=== PATIENT | male | born 1990 | race Caucasian/White ===

== ENCOUNTER 2025-01-13 19:02 | Emergency (ER) | payer OTHER, MEDICAID, SELFPAY ==
[2025-01-13 19:05] VITALS: BP 118/78; PULSE 87; O2SAT 98
[2025-01-13 19:09] VITALS: BP 127/70; PULSE 67; RESP 20; TEMP 37.1; O2SAT 96; BMI 31.1
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
--- OUTSIDE RECORDS SUMMARY | 2025-01-13 19:44 | XMS_ITS | Clinical Summary ---
Author Organization [facility] Address [address] [place] [address] Care Team Providers Care Central Office Equipment Engineer Name Role Phone Eneida Nichols PA-C Primary Care Provider [phone] Source Comments PLEASE NOTE, if this patient is a minor, it may be UNLAWFUL to discuss sensitive information that is contained in these records (such as FAMILY PLANNING, MENTAL HEALTH or SUBSTANCE ABUSE) with the minor patient's parent or other person without the patient's specific authorization.[facility] Allergies No known active allergies Medications risperiDONE (RISPERDAL) 1 mg tablet Take 1 Tab by mouth once daily 30 Tab 1 05/05/2018 Active traZODone (DESYREL) 50 mg tabletIndicatio ns:Anxiety and depression Take 1 Tab by mouth nightly at bedtime 30 Tab 3 05/05/2018 Active hydrOXYzine HCl (ATARAX) 50 mg tablet Take 1 Tab by mouth 3 (three) times daily as needed for anxiety 90 Tab 2 05/05/2018 Active cloNIDine HCl (CATAPRES) 0.1 mg tablet Take 1 Tab by mouth 2 (two) times daily 60 Tab 1 05/05/2018 Active valACYclovir (VALTREX) 1 gram tabletIndicatio ns:HSV-2 infection Take 1 Tab by mouth once daily 10 Tab 1 12/11/2019 Active Active Problems Problem Noted Date Diagnosed Date Suicidal ideation 06/09/2024 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 Alcohol dependence ([facility]) 12/27/2018 Overview (12/27/2018): Per [facility] Bipolar disorder ([facility]) 12/27/2018 Opioid overdose ([facility]) 04/22/2018 Overview (11/17/2018): Seen at [facility] on 04-20-18 11/05/18 Admitted [facility] psych for suicidal ideation Anxiety and depression 10/08/2016 Overview (01/06/2019): 01/03/19 Admitted to [facility] with SI Mood swings 10/08/2016 Polysubstance abuse ([facility]) 10/08/2016 Smoking addiction 02/23/2013 Allergy 02/23/2013 Immunizations Immunization Administration Dates Next Due Hep B, Adult/Adol (HHCVCUZ-P-GIHPQ/RECOMBIVAX-AD ULT) 02/02/2019 INFLUENZA, SEASONAL, INJECTABLE 02/23/2018,02/23 PNEUMOCOCCAL CONJUGATE PCV 13 01/29/2018 PNEUMOCOCCAL POLYSACCHARIDE PPV23 (Pneumovax 23) 02/23/2018 PPD 10/08/2016 TDAP 01/29/2018 Social History Tobacco Use Types Packs/Day Years Used Date Smoking Tobacco: Every Day Cigarettes 1 11 Smokeless Tobacco: Current Tobacco Cessation:Ready to Q uit: Yes; Counseling Given: Yes Comments:5 cigarettes aday Alcohol Use Standard Drinks/Week Comments Yes 0 (1 standard drink = 0.6 oz pur e alcohol) occasional Social Connections Answer Date Recorded Connectedness 0 05/13/2024 Financial Resource Strain Answer Date R ecorded Financial Resource Strain 0 2023 Stress Answer Date Recorded Stress 0 05/13/2024 Physical Activity Answer Date Recorded Physical Activity 0 05/13/2024 Food Insecurity Answer Date Recorded Food 0 05/13/2024 Transportation Needs Answer Date Record ed Transportation 0 05/13/2024 Housing Stability Answer Date Recorded Housing 0 05/13/2024 Safety and Environment Answer Date Robbin rded Safety 0 05/13/2024 Utilities Answer Date Recorded Utilities 0 05/13/2024 Employment Answer Date Recorded Stress 0 05/13/2024 Sex and Gender Information Value Date Recorded Sex Assigned at Male 01/29/2018 9:27 AM PDT Legal Sex Male 8:20 AM PDT Gender Identity Male 01/29/2018 9:27 AM PDT Sexual Orientation Straight 01/29/2018 9: 27 AM PDT Last Filed Vital Signs Vital Sign Reading Time Taken Comments Blood Pressure 116/60 02/02/2019 2:53 PM EDT Pulse 60 02/02/2019 2:53 PM EDT Temperature 37 C (98.6 F) 02/02/2019 2:53 PM EDT Respiratory Rate 18 02/02/2019 2:53 PM EDT Oxygen Saturation 97% 04/15/2018 1:58 PM EST Inhaled Oxygen Concentration - - Weight 67.1 kg (147 lb 14.4 oz) 02/02/2019 2:53 PM EDT Height 165.1 cm (5' 5 ) 02/02/2019 2:53 PM EDT Body Mass Index 24.61 02/02/2019 2:53 PM EDT Plan of Treatment Health Maintenance Due Date Last Done Comments Anxiety Screening 1991 Medicare Annual Wellness Visit 11/08/2009 Depression Monitoring 04/30/2018 01/29/2018 Diabetes Screening 01/29/2019 01/29/2018, 10/08/2016 Lipid Screening 01/29/2019 01/29/2018 Tobacco Cessation Counseling (#1) 01/29/2019 018 Tobacco Screening 01/29/2019 01/29/2018 Imm-Hepatitis B (2 of 3 - 19 + 3-dose series) 03/02/2019 02/02/2019 Syphilis Screening 02/03/2020 02/02/2019, 1 06/15/2017, 10/08/2016 Hypertension Screening (#1) 02/01/2022 Uel-MTZWO-89 ( season) 2024 05/09/2021, 08/23/2020, 07/26/2020 Alcohol and Drug Screen 05/26/2024 02/02/2019, 01/29 Imm-Influenza (#1) 2025 02/23/2018, 02/23/2013 Imm-DTaP/Tdap/Td (2 - Td or Tdap) 01/30/2028 018 Imm-Pneumococcal (3 of 3 - P CV20 or PCV21) 11/08/2041 02/23/2018, 01/29/2018 Hepatitis C Screening Completed 01/29/2018 HIV Screening Completed 02/02/2019, 01/29/2018 Procedures Procedure Name Priority Date/Time Associated Diagnosis Comments ANTIBODY HIV-1&HIV-2 SINGLE RESULT Routine 02/02/2019 3:25 PM EDT Screen for STD (sexually transmitted disease) FTA-ABS, SERUM Routine 02/02/2019 3:25 PM EDT Screen for STD (sexually transmitted disease) HEPATITIS A,B,C PANEL Routine 01/29/2018 11:03 AM EDT Encounter for HCV screening test for low risk patient COMPREHENSIVE METABOLIC PANEL Routine 01/29/2018 11:03 AM EDT Routine general medical examination at a health care facility LIPID PANEL Routine 01/29/2018 11:03 AM EDT Routine general medical examination at a health care facility from Last 3 Months or Most Recently Relevant to Health Maintenance Results * FTA-ABS, SERUM (02/02/2019 3:25 PM EDT) TREPONEMAL AB NEGATIVE NEGATIVE [facility] 02/02/2019 3:25 PM EDT 02/02/2019 3:28 PM EDT Narrative [facility] - 02/02/2019 7:20 PM EDT [facility], [place] [address] Trigonometry Teacher - Karine Edward MD PT ID [id number] ORD# [id number] Ermias Ennis NP LAB - [place] [address], * STD--HIV1 &2 (02/02/2019 3:25 PM EDT) Pathologist [facility] HIV 1 AND 2 ANTIBODY SCREEN NEGATIVE NEGATIVE [facility] Comment: This assay is a 4th generation assay allowing for earlier detection of HIV infection by detecting the presence of the HIV-1 p24 antigen as well as the traditional antibodies to HIV type 1 (including group O) and type 2. Use of a 4th generation assay is the current CDC recommendation for HIV screening. Blood specimen (specimen) Blood / Unknown 02/02/2019 3:25 PM EDT 02/02/2019 3:28 PM EDT Narrative [facility] - 02/02/2019 7:47 PM EDT [employer], a member of [address] [address] Trigonometry Teacher - Karine Edward MD PT ID [id number] ORD# [id number] Ermias Ennis NP LAB - BLOOD DRAW Final Result Performing Organization Address City/[facility]/ZIP Co de Phone Number [address] [address], [place] [phone] * (ABNORMAL) HEPATITIS A,B,C PANEL (01/29/2018 11:03 AM EDT) HEPATITIS B SURFACE ANTIBODY NEGATIVE NEGATIVE [facility] HEPATITIS B SURFACE ANTIGEN NEGATIVE NEGATIVE [facility] Comment: Over the counter supplements containing high doses of biotin may interfere with this assay. If interference is suspected, patients shoud be retested after refraining from biotin supplements for 72 hours. HEPATITIS C VIRUS DIAGNOSTIC NEGATIVE NEGATIVE [facility] HEPATITIS B CORE ANTIBODY NEGATIVE NEGATIVE [facility] HEPATITIS A ANTIBODY TOTAL POSITIVE(A) NEGATIVE [facility] Comment: Over the counter supplements containing high doses of biotin may interfere with this assay. If interference is suspected, patients shoud be retested after refraining from biotin supplements for 72 hours. Blood specimen (specimen) Blood / Unknown 01/29/2018 11:03 AM EDT 01/29/2018 2:44 PM EDT Narrative [facility] - 01/29/2018 4:24 PM EDT [employer] [address] [place] [address] PT ID [id number] ORD# [id number] [facility] - BLOOD DRAW Edited Result - Final [address] [address], [place] [phone] * LIPID PANEL (01/29/2018 11:03 AM EDT) CHOLESTEROL 129 0 - 200 mg/dL [facility] TRIGLYCERIDES 73 0 - 150 mg/dL [facility] HDL CHOLESTEROL 41 >40 mg/dL [facility] LDL CALCULATED 74 0 - 100 mg/dL [facility] TC-HDLC RATIO 3.2 0 - 4.4 mg/dL [facility] Blood specimen (specimen) Blood / Unknown 01/29/2018 11:03 AM EDT 01/29/2018 2:44 PM EDT [facility] - 01/29/2018 4:04 PM EDT [facility] [address] [place] [address] PT ID [id number] ORD# [id number] [facility] - BLOOD DRAW Edited Result - Final [facility] [address] [place] [address], * (ABNORMAL) COMPRE METAB PANEL (CMP) (01/29/2018 11:03 AM EDT) GLUCOSE 108(H) 70 - 100 mg/dL [facility] Comment:Reference range appl icable to fasting specimens only BUN 8 5 - 25 mg/dL [facility] CREAT 1.00 0.7 - 1.3 mg/dL [facility] GLOMERULAR FILTRATION RATE > 60 [facility] Comment: If patient is -Bur[place]ian, multiply result by 1.21 Chronic Kidney Disease: < 60 ml/min/1.73 square meters Kidney Failure: < 15 ml/min/1.73 square meters SODIUM 137 133 - 145 mmol/L [facility] POTASSIUM 3.3(L) 3.5 - 5.5 mmol/L [facility] CHLORIDE 103 96 - 110 mmol/L [facility] CO2 24 21 - 32 mmol/L [facility] ANION GAP 10 3 - 11 [facility] CALCIUM 9.2 8.5 - 10.5 mg/dL [facility] TOTAL PROTEIN 7.2 6.0 - 8.0 G/dL [facility] ALBUMIN 4.3 3.2 - 5.0 G/dL [facility] BILI, TOTAL 0.4 0.0 - 1.4 mg/dL [facility] SGOT 15 10 - 42 U/L [facility] SGPT 17 10 - 60 U/L [facility] ALK PHOS 71 42 - 121 U/L [facility] Blood specimen (specimen) Blood / Unknown 01/29/2018 11:03 AM EDT 01/29/2018 2:44 PM EDT [facility] - 01/29/2018 4:04 PM EDT [facility] [address] [place] [address] PT ID [id number] ORD# [id number] [facility] - BLOOD DRAW Edited Result - Final [facility] [address] [place] [address], from Last 3 Months or Most Recently Relevant to Health Maintenance Insurance [place]ICARE - [place] [facility] [place] Care Teams Central Office Equipment Engineer Relationship Specialty Start Date End Date Eneida Nichols PA-C [address] [place] [id number] PCP - General Primary Care 10/23/23
--- OUTSIDE RECORDS SUMMARY | 2025-01-13 19:44 | XMS_ITS | Clinical Summary ---
Author Organization [facility] Address [address] [place] [address] Phone Care Team Providers Care Gaming Pit Boss Name Role Phone Physician, No Pcp Primary Care Provider Unavaila ble Allergies No known active allergies Encounters Date Type Department Care Team Description 12/21/2024 5:42 PM EDT - 12/22/2024 11:32 AM EDT Emergency [facility] Emergency [address] [place] [address] Nathaly Basurto MD Mersier, Jasmine, DO Suicidal ideation (Primary Dx); Polysubstance abuse (CMS/HCC V24, CMS/[facility] V28); Medical clearance for psychiatric admission Discharge Disposition: Another Health Care Institution Not Defined from Last 3 Months Medical History Medical History Date Comments Adhd per [facility] Schizoaffective disorder (CMS/HCC V24, CMS/[facility] V 28) per [facility] Anxiety per [facility] Depression per [facility] History of bipolar disorder per [facility] Asthma Hyperthyroidism Social History Tobacco Use Types Packs/Day Years Used Date Smoking Tobacco: Every Day Cigarettes Smokeless Tobacco: Current Tobacco Cessation:Ready to Q uit: Not Asked; Counseling Given: Not Answered Alcohol Use Standard Drinks/Week Comments Not Currently 0 (1 standard drink = 0.6 oz pur e alcohol) Sex and Gender Information Value Date Recorded Sex Assigned at Not on file Legal Sex Male 5:08 AM EST Gender Identity Not on file Sexual Orientation Not on file Obstetrics History Last Filed Vital Signs Vital Sign Reading Time Taken Comments Blood Pressure 132/70 12/22/2024 6:23 AM EDT Pulse 68 12/22/2024 6:23 AM EDT Temperature 37.1 C (98.8 F) 12/22/2024 6:23 AM EDT Respiratory Rate 18 12/22/2024 6:23 AM EDT Oxygen Saturation 97% 12/22/2024 6:23 AM EDT Inhaled Oxygen Concentration - - Weight 74.8 kg (165 lb) 12/21/2024 5:49 PM EDT Height 165.1 cm (5' 5 ) 12/21/2024 5:49 PM EDT Body Mass Index 27.46 12/21/2024 5:49 PM EDT Plan of Treatment Health Maintenance Due Date Last Done Comments Hepatitis A Vaccines (1 of 2 - Risk 2-dose series) 11/08/2010 Hepatitis B Vaccines (2 of 3 - 19+ 3-dose series) 03/02/2019 02/02/2019 COVID-19 Vaccine (4 - 2023-2 5 season) 2024 05/09/2021, 08/23/2020, 07/26/2020 Depression Screening 05/26/2024 Cholesterol Screening (Lipid Panel) 12/22/2024 01/29/2018, 01/29/2018 Hepatitis C Screening 12/22/2024 Medicare Annual Wellness Visit 12/22/2024 Social Influencers of Health Screening 12/22/2024 Influenza Vaccine (#1) 2025 8, 02/23/2013 DTaP,Tdap,and Td Vaccines (2 - Td or Tdap) 01/30/2028 01/29/2018 Pneumococcal Vaccine: Pediatrics (0 to 5 Years) and At-Risk Patients (6 to 49 Years) (3 of 3 - PCV20 or PCV21) 11/08/2041 02/23/2018, 01/29/2018 HIV Screening Completed 02/02/2019 HIB Vaccines Aged Out No longer eligi ble based on patient's age to complete this topic HPV Vaccines Aged Out No longer eligi ble based on patient's age to complete this topic IPV Vaccines Aged Out No longer eligi ble based on patient's age to complete this topic MMR Vaccines Aged Out No longer eligi ble based on patient's age to complete this topic Meningococcal ACWY Vaccine Aged Out N o longer eligible based on patient's age to complete this topic Meningococcal B Vaccine Aged Out No l onger eligible based on patient's age to complete this topic RSV Immunization Patients Under 20 months Aged Out No longer eligible b ased on patient's age to complete this topic Varicella Vaccines Aged Out No longer eligible based on patient's age to complete this topic Procedures Procedure Name Priority Date/Time Associated Diagnosis Comments CBC WITH AUTO DIFFERENTIAL STAT 12/21/2024 6:03 PM EDT METHADONE SCREEN, URINE STAT 12/21/2024 6:03 PM EDT PHENCYCLIDINE, URINE STAT 12/21/2024 6:03 PM EDT BUPRENORPHINE SCREEN, URINE STAT 12/21/2024 6:03 PM EDT DRUG ABUSE SCREEN 8A PANEL, URINE STAT 12/21/2024 6:03 PM EDT SALICYLATE LEVEL STAT 12/21/2024 6:03 PM EDT ACETAMINOPHEN LEVEL STAT 12/21/2024 6 :03 PM EDT ETHANOL STAT 12/21/2024 6:03 PM EDT COMPREHENSIVE METABOLIC PANEL STAT 12/21/2024 6:03 PM EDT CBC AND DIFFERENTIAL STAT 12/21/2024 6:03 PM EDT from Last 3 Months Results * (ABNORMAL) Drug abuse screen 8a panel, urine (12/21/2024 6:03 PM EDT) Amphetamine Screen, Ur Negative Negative LAB CHEMISTRY METHOD 5 7:14 PM EDT [facility] Comment:Certain OTC medicati ons containing ephedrine, phenylephrine, pseudoephedrine and phenylpropanolamine can cause false positive results. Barbiturate Screen, Ur Negative Negative LAB CHEMISTRY METHOD 5 7:14 PM EDT [facility] Benzodiazepine Screen, Ur Negative Negative LAB CHEMISTRY METHOD 5 7:14 PM EDT [facility] Cocaine Screen, Ur Positive(A ) Negative LAB CHEMISTRY METHOD 5 7:14 PM EDT [facility] Opiate Screen, Ur Negative Negative LAB CHEMISTRY METHOD 5 7:14 PM EDT [facility] Cannabinoid (THC) Screen, Ur Positive(A ) Negative LAB CHEMISTRY METHOD 5 7:14 PM EDT [facility] Comment:Specimens from patie nts taking pantoprazole sodium (Protonix) have been shown to produce false positive results. Oxycodone Screen, Ur Negative Negative LAB CHEMISTRY METHOD 5 7:14 PM EDT [facility] Fentanyl, Ur Positive(A ) Negative LAB CHEMISTRY METHOD 5 7:14 PM EDT [facility] Urine Urine specimen obtained by clean catch procedure / Unknown Non-blood Collection / Unknown 12/21/2024 6:03 PM EDT 12/21/2024 6:30 PM EDT Narrative [facility] - 12/21/2024 7:14 PM EDT Assay cutoffs: Amphetamines 1000 ng/mL Barbiturates 200 ng/mL Benzodiazepines 200 ng/mL Cocaine 300 ng/mL Fentanyl 1 ng/mL Opiates 300 ng/mL Oxycodone 100 ng/mL THC 50 ng/mL Semi-quantitative assay for screening purposes only. Unconfirmed screening result should not be used for non-medical purposes. *ALTERNATE METHOD CONFIRMATION DONE UPON REQUEST ONLY* Eric Conklin MD LAB URINE ORDERABLES Final Result [facility] [address] [place] [address], * (ABNORMAL) Buprenorphine screen, urine (12/21/2024 6:03 PM EDT) Buprenorphine Screen Urine Positive (A) Negative LAB CHEMISTRY METHOD 12/21/2024 6:54 PM EDT [facility] Urine Urine specimen obtained by clean catch procedure / Unknown Non-blood Collection / Unknown 12/21/2024 6:03 PM EDT 12/21/2024 6:30 PM EDT Narrative [facility] - 12/21/2024 6:54 PM EDT Assay cutoff 5 ng/mL Semi-quantitative assay for screening purposes only. Unconfirmed screening result should not be used for non-medical purposes. *ALTERNATE METHOD CONFIRMATION DONE UPON REQUEST ONLY* Eric Conklin MD LAB URINE ORDERABLES Final Result Performing Organization Address [facility] [[email or web address]] de Phone Number [facility] [address] [place] [address], [place] [phone] * Methadone, urine (12/21/2024 6:03 PM EDT) Methadone Screen, Urine Negative Negative LAB CHEMISTRY METHOD 12/21/2024 6:54 PM EDT [facility] Comment: Assay cutoff 300 ng/mL Semi-quantitative assay for screening purposes only. Unconfirmed screening result should not be used for non-medical purposes. *ALTERNATE METHOD CONFIRMATION DONE UPON REQUEST ONLY* Urine Urine specimen obtained by clean catch procedure / Unknown Non-blood Collection / Unknown 12/21/2024 6:03 PM EDT 12/21/2024 6:30 PM EDT Eric Conklin MD LAB URINE ORDERABLES Final Result Performing Organization Address [facility] [[email or web address]] de Phone Number [facility] [address] [place] [address], [place] [phone] * (ABNORMAL) CBC auto differential (12/21/2024 6:03 PM EDT) WBC 12.9(H) 4.8 - 10.8 K/[facility] LAB HEMETOLOGY METHOD 12/21/2024 6:42 PM EDT [facility] RBC 4.80 4.50 - 5.50 M/[facility] LAB HEMETOLOGY METHOD 12/21/2024 6:42 PM EDT [facility] Hemoglobin 13.3(L) 13.5 - 17.5 g/dL LAB HEMETOLOGY METHOD 12/21/2024 6:42 PM EDT [facility] Hematocrit 39.0(L) 42.0 - 54.0 % LAB HEMETOLOGY [facility]24 [facility] MCV 81.6 79.0 - 98.0 FL LAB HEMETOLOGY METHOD 12/21/2024 6:42 PM EDT [facility] MCH 27.8 27.0 - 32.0 pcg LAB HEMETOLOGY METHOD 12/21[facility]2024 6[facility] MCHC 34.1 32.0 - 37.0 g/dL LAB HEMETOLOGY METHOD 12/21/2024 6:[facility] RDW 14.6 11.0 - 15.0 % LAB HEMETOLOGY METHOD 12/21/2024 6:42 PM EDT [facility] Platelets 245 130 - 400 K/mcL LAB HEMETOLOGY METHOD 12/21/2024 6:[facility] MPV 9.3 7.0 - 11.0 FL LAB HEMETOLOGY METHOD 12/21/2024 6:[facility] NRBC 0.0 <1.0 % LAB HEMETOLOGY METHOD 12/21/2024 6:42 PM EDT [facility] NRBC Absolute 0.00 <0.10 K/mcL LAB HEMETOLOGY METHOD 12/21/2024 6:42 PM EDT [facility] Neutrophils Relative 71.0 % LAB HEMETOLOGY METHOD 12/21/2024 6:[facility] Lymphocytes Relative 20.1 % LAB HEMETOLOGY METHOD 12/21/2024 6:42 PM EDT [facility] Monocytes Relative 6.3 % LAB HEMETOLOGY METHOD 12/21/2024 6:42 PM EDT [facility] Eosinophils Relative 1.8 % LAB HEMETOLOGY METHOD 12/21/2024 6:42 PM EDT [facility] Basophils Relative 0.4 % LAB HEMETOLOGY METHOD 12/21/2024 6:42 PM EDT [facility] Immature Granulocytes Relative 0.4 % LAB HEMETOLOGY METHOD 12/21/2024 6:42 PM EDT [facility] Neutrophils Absolute 9.14(H) 1.50 - 7.00 K/mcL LAB HEMETOLOGY METHOD 12/21/2024 6:42 PM EDT [facility] Lymphocytes Absolute 2.59 1.00 - 5.00 K/mcL LAB HEMETOLOGY METHOD 12/21/2024 6:42 PM EDT [facility] Monocytes Absolute 0.81 0.20 - 1.00 K/mcL LAB HEMETOLOGY METHOD 12/21/2024 6:42 PM EDT [facility] Eosinophils Absolute 0.23 0.00 - 0.50 K/mcL LAB HEMETOLOGY METHOD 12/21/2024 6:42 PM EDT [facility] Basophils Absolute 0.05 0.00 - 0.20 K/mcL LAB HEMETOLOGY METHOD 12/21/2024 6:42 PM EDT [facility] Immature Granulocytes Absolute 0.05(H) 0.00 - 0.03 K/mcL LAB HEMETOLOGY METHOD 12/21/2024 6:42 PM EDT [facility] Blood Venous blood specimen / Unknown Venipuncture / Unknown 12/21/2024 6:03 PM EDT 12/21/2024 6:30 PM EDT us Eric Conklin MD LAB BLOOD ORDERABLES Final Result [facility] [address] [place] [address], [place] [phone] * Phencyclidine, urine (12/21/2024 6:03 PM EDT) PCP Scrn, Ur Negative Negative LAB CHEMISTRY METHOD 12/21/2024 6:54 PM EDT [facility] Comment: Assay cutoff 25 ng/mL Semi-quantitative assay for screening purposes only. Unconfirmed screening result should not be used for non-medical purposes. *ALTERNATE METHOD CONFIRMATION DONE UPON REQUEST ONLY* Urine Urine specimen obtained by clean catch procedure / Unknown Non-blood Collection / Unknown 12/21/2024 6:03 PM EDT 12/21/2024 6:30 PM EDT Eric Conklin MD LAB URINE ORDERABLES Final Result Performing Organization Address [facility]/ZIP Co de Phone Number [facility] [address] [place] [address], [place] [phone] * Ethanol (12/21/2024 6:03 PM EDT) Pathologist [facility] Ethanol Level <3 0 - 10 mg/dL LAB CHEMISTRY METHOD 12/21/2024 6:56 PM EDT [facility] Blood Venous blood specimen / Unknown Venipuncture / Unknown 12/21/2024 6:03 PM EDT 12/21/2024 6:30 PM EDT Eric Conklin MD LAB BLOOD ORDERABLES Final Result [facility] [address] [place] [address], [place] [phone] * (ABNORMAL) Acetaminophen level (12/21/2024 6:03 PM EDT) Acetaminophen Level <2.0(L) 10.0 - 30.0 mcg/mL LAB CHEMISTRY METHOD 12/21/2024 6:56 PM EDT [facility] Blood Venous blood specimen / Unknown Venipuncture / Unknown 12/21/2024 6:03 PM EDT 12/21/2024 6:30 PM EDT Eric Conklin MD LAB BLOOD ORDERABLES Final Result Performing Organization Address [facility]/ZIP Co de Phone Number [facility] [address] [place] [address], [place] [phone] * (ABNORMAL) Salicylate level (12/21/2024 6:03 PM EDT) Salicylate Level 1.8(L) 2.0 - 29.0 mg/dL LAB CHEMISTRY METHOD 12/21/2024 6:56 PM EDT [facility] Blood Venous blood specimen / Unknown Venipuncture / Unknown 12/21/2024 6:03 PM EDT 12/21/2024 6:30 PM EDT Eric Conklin MD LAB BLOOD ORDERABLES Final Result Performing Organization Address [facility] Co de Phone Number [facility] [address] [place] [address], [place] [phone] * (ABNORMAL) Comprehensive metabolic panel (12/21/2024 6:03 PM EDT) Sodium 139 133 - 145 mmol/L LAB CHEMISTRY METHOD 12/21/2024 6:57 PM EDT [facility] Potassium 3.5 3.5 - 5.5 mmol/L LAB CHEMISTRY METHOD 12/21/2024 6:57 PM EDT [facility] Chloride 106 96 - 110 mmol/L LAB CHEMISTRY METHOD 12/21/2024 6:57 PM EDT [facility] CO2 29 21 - 32 mmol/L LAB CHEMISTRY METHOD 12/21/2024 6:57 PM EDT [facility] Anion Gap 4 3 - 11 LAB CHEMISTRY METHOD 12/21/2024 6:57 PM [facility] Glucose 83 70 - 100 mg/dL LAB CHEMISTRY METHOD 12/21/2024 6:57 PM [facility] BUN 11 5 - 25 mg/dL LAB CHEMISTRY METHOD 12/21/2024 6:57 PM [facility] Creatinine 0.65(L) 0.70 - 1.30 mg/dL LAB CHEMISTRY METHOD 12/21/2024 6:57 PM [facility] eGFR 128 >=60 mL/min/1. 73m2 LAB CHEMISTRY METHOD 12/21/2024 6:57 PM [facility] Comment:Calculation based on the Chronic Kidney Disease Epidemiology Collaboration (CKD-EPI) equation refit without adjustment for race. BUN/Creatinine Ratio 16.9 LAB CHEMISTRY METHOD 12/21/2024 6:57 PM [facility] Calcium 8.7 8.5 - 10.5 mg/dL LAB CHEMISTRY METHOD 12/21/2024 6:57 PM [facility] AST (SGOT) 33 10 - 42 unit/L LAB CHEMISTRY METHOD 12/21/2024 6:57 PM [facility] ALT (SGPT) 39 10 - 60 unit/L LAB CHEMISTRY METHOD 12/21/2024 6:57 PM [facility] Alkaline Phosphatase 56 42 - 121 unit/L LAB CHEMISTRY METHOD 12/21/2024 6:57 PM [facility] Total Protein 6.3 6.0 - 8.0 g/dL LAB CHEMISTRY METHOD 12/21/2024 6:57 PM [facility] Albumin 3.4 3.2 - 5.0 g/dL LAB CHEMISTRY METHOD 12/21/2024 6:57 PM [facility] Total Bilirubin 0.6 0.0 - 1.4 mg/dL LAB CHEMISTRY METHOD 12/21/2024 6:57 PM [facility] Blood Venous blood specimen / Unknown Venipuncture / Unknown 12/21/2024 6:03 PM EDT 12/21/2024 6:30 PM EDT us Eric Conklin MD LAB BLOOD ORDERABLES Final Result [facility] [address] [place] [address], from Last 3 Months Insurance [facility] MEDIC[facility] Member Subscriber Plan / Payer (Ef fective 2023-Present) Name:SHIN VILLEDA JR Relation to Subscriber:Self Name:Shin Villeda Payer ID:[id number] Group ID:[id number] Type:Not on file Address: [facility] [address] [id number] Care Teams Gaming Pit Boss Relationship Specialty Start Date End Date Physician, No Pcp PCP - General 12/21/24
[2025-01-13 20:14] LABS: Alanine Aminotransferase 59 U/L (0-40); Aspartate Amino Transferase 47 U/L (5-37); Creatinine Clr Calc Pharmacy 178.4; Estimated Glomerular Filt Rate > 60
[2025-01-13] MEDS: cefTRIAXone sodium 500 MG, Lidocaine HCl 1 % MPF 1 ML IM (22:13)
[2025-01-13] MEDS: SANE Emtricit/Tenofov DF 200/300 TABLET KIT 1 TAB PO (22:14)
[2025-01-13] MEDS: SANE Doxycycline Monohydrate 100 MG CAPSULE PO (22:14)
--- NOTE | 2025-01-13 22:18 | PC.NURSE ---
Medicated per MAR.
[2025-01-13 22:24] VITALS: BP 115/62; PULSE 61; RESP 16; TEMP 37.1; O2SAT 99
--- NOTE | 2025-01-13 22:33 | PC.NURSE ---
Nurse to nurse given to RN at [place]. EMS at bedside for transport. Prep medications sent with EMS.
[2025-01-13 22:42] LABS: Cannabinoid Screen Urine POSITIVE (Not Detect)
[2025-01-14 07:51] LABS: Syphilis Screen Nonreactive (Nonreactive)
[2025-01-14 08:05] LABS: HBS Num1 0.45 mIU/mL (0-7.99); HBsAGNum1 0.46 S/CO (0.00-0.99); HIV Num 1 0.05 S/CO (0.00-0.99); Hepatitis B Surface Antigen Negative (Negative); ~HepC Num1 0.08 S/CO (0.00-0.79); ~Hepatitis B Surface Antibody NONREACTIVE (Nonreactive); ~Hepatitis C Antibody Nonreactive (Nonreactive)
[2025-01-14 12:48] LABS: CT PCR Urine NOT DETECTED (Not Detect.); NG PCR Urine NOT DETECTED (Not Detect.)
== END 2025-01-13 23:00 ==
PROVIDERS: Emergency Provider Emergency Medicine
DX: T76.21XA Adult sexual abuse, suspected, initial encounter (principal); Z51.81 Encounter for therapeutic drug level monitoring; Z20.2 Contact with and (suspected) exposure to infections with a predominantly sexual mode of transmission; Z79.899 Other long term (current) drug therapy
CPT/HCPCS: 36415; 80307; 82565; 84450; 84460; 86706; 86780; 86803; 87340; 87389; 87491; 87591; 96372; 99284; 99285; J0696; J2003